=== PATIENT | female | born 1980 | race Caucasian/White ===

== ENCOUNTER 2017-11-20 15:33 | Emergency (ER) | payer OTHER, BC, SELFPAY ==
[2017-11-20 15:43] VITALS: BP 106/71; PULSE 88; RESP 16; TEMP 36.6; O2SAT 98; BMI 26.0
--- NOTE | 2017-11-20 15:48 | ED.UPPEXIN ---
HPI - Extremity Injury (Upper) <LUPILLO Church-BC - Last Filed: 11/20/17 18:17> General Chief Complaint: Extremity Injury, Upper Stated Complaint: RIGHT WRIST AND ARM PAIN FROM FALL Time Seen by Provider: 11/20/17 15:43 Source: patient Mode of arrival: ambulatory Limitations: no limitations History of Present Illness HPI narrative: Patient presents stating that she thinks she broke her right wrist again. She states she had a hamate fracture on the of last month, for which she was seen at [facility] and has already seen Orthopedics. She presents to the emergency department in an ulnar gutter splint. She has taken 100 mg of ibuprofen. She complains of pain in her right wrist as well as numbness and tingling in her fingers. She states ?this is exactly how it felt when I broke it before. States she did not land on an outstretched hand. States she landed with her right wrist flat on the ground. Denies any other injuries or pain from her fall. Related Data Allergies Allergy/AdvReac Type Severity Reaction Status Date / Time aspirin Allergy Severe Anaphylaxis Verified 11/20/17 15:46 amitriptyline Allergy Verified 11/20/17 15:46 cyclobenzaprine Allergy Verified 11/20/17 15:46 [From Flexeril] hydrocodone [From Vicodin] Allergy Verified 11/20/17 15:46 ketorolac [From Toradol] Allergy Verified 11/20/17 15:46 latex Allergy Verified 11/20/17 15:46 Sulfa (Sulfonamide Allergy Verified 11/20/17 15:46 Antibiotics) tramadol Allergy Verified 11/20/17 15:46 trazodone Allergy Verified 11/20/17 15:46 Review of Systems <LUPILLO Church-BC - Last Filed: 11/20/17 18:17> Review of Systems GENERAL: Denies chills, fatigue, malaise, fever, sweats. HEENT: Denies sinus pain, ear pain, sore throat, difficulty swallowing, dizziness. RESPIRATORY: Denies dyspnea, cough, wheezing, hemoptysis, sputum. CARDIOVASCULAR: Denies chest pain, palpitations, orthopnea, edema, GASTROINTESTINAL: Denies nausea, vomiting, abdominal pain, diarrhea, constipation, melena. : Denies dysuria, frequency, incontinence, hematuria, urinary retention. MUSCULOSKELETAL: See HPI SKIN: Denies rash, skin lesions, or other NEUROLOGIC: Denies weakness, headache, numbness, change in speech, confusion, seizures, incoordination. PSYCHIATRIC: No concerning psychosocial issues. 12 point review of systems is negative except for those stated above Exam <Emily RAJIV NunnP-BC - Last Filed: 11/20/17 18:17> Narrative Exam Narrative: GENERAL: This is a well-nourished, well-developed patient, appears anxious with friend at bedside. HEAD: Atraumatic. Normocephalic. No temporal or scalp tenderness. EYES: Pupils equal round and reactive. Extraocular motions intact. No scleral icterus. No injection or drainage. ENT: Nose without bleeding, purulent drainage or septal hematoma. Uvula midline. Airway patent. NECK: Trachea midline. No JVD or lymphadenopathy. Supple, nontender, no meningeal signs. CARDIOVASCULAR: Regular rate and rhythm without murmurs, gallops, or rubs. RESPIRATORY: Clear to auscultation. Breath sounds equal bilaterally. No wheezes, rales, or rhonchi. GASTROINTESTINAL: Abdomen soft, non-tender, nondistended. No hepato-splenomegaly, or palpable masses. No guarding. EXTREMITIES: Right wrist immobilized in ulnar gutter splint. Pain to palpation right wrist. Unable to perform range of motion due to splinting and previous fracture. Capillary refill less than 2 sec all fingers of right hand. BACK: Nontender without deformity or crepitance. No flank tenderness. NEURO: AOx3. SKIN: No rash or erythema. No noted erythema or ecchymosis of right hand. Skin is intact at right hand. Initial Vital Signs Initial Vital Signs: Vital Signs Temperature 97.8 F 11/20/17 15:43 Pulse Rate 88 11/20/17 15:43 Respiratory Rate 16 11/20/17 15:43 Blood Pressure 106/71 11/20/17 15:43 Pulse Oximetry 98 11/20/17 15:43 <Enzo Nolasco DO - Last Filed: 11/21/17 07:11> Initial Vital Signs Initial Vital Signs: Vital Signs Temperature 97.8 F 11/20/17 15:43 Pulse Rate 88 11/20/17 15:43 Respiratory Rate 16 11/20/17 15:43 Blood Pressure 106/71 11/20/17 15:43 Pulse Oximetry 98 11/20/17 15:43 Procedures <BETO Church - Last Filed: 11/20/17 18:17> Orthopedic Splinting/Casting Injury #1: Side: right Upper Extremity Injury Location: wrist Upper Extremity Immobilizer: ulnar gutter Additional Comments: pulse motor and sensory intact before and after splint application Course <BETO Church - Last Filed: 11/20/17 18:17> Orders Ordered: Discontinued Medications Acetaminophen (Tylenol) 975 mg PO NOW ONE Stop: 11/20/17 16:34 Last Admin: 11/20/17 16:52 Dose: 975 mg Ondansetron HCl (Zofran Odt) 4 mg PO NOW ONE Stop: 11/20/17 16:37 Last Admin: 11/20/17 16:52 Dose: 4 mg Reevaluation(s) Reevaluation #1: Patient given ice pack. Ice water given the patient's friend's son. Time: 16:00 Reevaluation #2: Splint applied. Patient tolerated well. Time: 16:30 Vital Signs - 8 hr 11/20/17 15:43 11/20/17 17:06 Temperature 97.8 F Pulse Rate 88 66 Respiratory Rate 16 16 Blood Pressure 106/71 Blood Pressure [Left Arm] 114/80 Pulse Oximetry 98 97 <Enzo Nolasco DO - Last Filed: 11/21/17 07:11> Orders Ordered: Discontinued Medications Acetaminophen (Tylenol) 975 mg PO NOW ONE Stop: 11/20/17 16:34 Last Admin: 11/20/17 16:52 Dose: 975 mg Ondansetron HCl (Zofran Odt) 4 mg PO NOW ONE Stop: 11/20/17 16:37 Last Admin: 11/20/17 16:52 Dose: 4 mg Vital Signs - 8 hr 11/20/17 15:43 11/20/17 17:06 Temperature 97.8 F Pulse Rate 88 66 Respiratory Rate 16 16 Blood Pressure 106/71 Blood Pressure [Left Arm] 114/80 Pulse Oximetry 98 97 MDM - Extremity Injury (Upper) <BETO Church - Last Filed: 11/20/17 18:17> Imaging Data right wrist xray : Radiologist's impression: [address] [address] XRay Report Signed Patient: Laila Fuller MR#: [id number] : 1980 Acct:[id number] Age/Sex: 37 / F Date of Service: 11/20/17 Loc: ED Accession Number: [id number] Procedure: XR wrist RT 2V Ordering Provider: Emily Nunn PROCEDURE: XR WRIST RT 2V INDICATIONS: recent wrist fracture; GLF and feels like she broke it again TECHNIQUE: 2 views of the wrist were acquired. COMPARISON: [facility], CR, XR HAND 3+ VIEWS RIGHT, 11/01/2017, 11:34. [facility], CR, XR WRIST 3+ VIEWS RIGHT, 10/29/2017, 9:21. [facility], CR, XR HAND 3+ VIEWS RIGHT, 10/30/2017, 10:49. [facility], CR, XR HAND 3+ VIEWS RIGHT, 11/17/2017, 13:19. FINDINGS: Bones: There is a nondisplaced fractures involving the ulnar aspect of the distal hamate and the base of the fifth metacarpal. No suspicious bony lesions. Soft tissues: No suspicious soft tissue calcifications. IMPRESSION: Healing fractures of hamate and the fifth metacarpal base. Dictated by: Nilsa Young M.D. on 11/20/2017 at 16:22 Approved by: Nilsa Young M.D. on 11/20/2017 at 16:29 [facility] Narrative Medical decision making narrative: Patient presented with concern over refracturing her wrist. X-ray illustrated a ?healing fracture of the hamate and 5th metacarpal base. Given that she broke her splint during her fall, she was placed in an ulnar gutter splint. Pulse motor and sensory were intact before and after splint application. Patient stated pain relief from splinting. She was also given Tylenol in the emergency department. I agree referred her to [facility] for specialist follow-up. She had no questions or concerns upon discharge. She did decline a sling. Discharge Plan Departure Patient Disposition: Home, Self-Care Clinical Impression: Fracture of wrist Discharge Date/Time: 11/20/17 17:18 Interventions: ED Discharge Assessment Last Done: 11/20/17 17:17 Instructions: DI for Wrist Fracture, How To Perform RICE (Rest, Ice, Compress, Elevate), How to Take Care of Your Splint, Acetaminophen, Ibuprofen Activity Restrictions/Additional Instructions: X-ray showed a fracture in your wrist. The radiologist states it appears as if it is healing. However given her previous injury and the breaking her splint, we resplinted you today. I would like you to follow up the primary care provider as well as [facility]. I have placed another referral for [facility]. I have given you information on rest, ice, compression and elevation. I also gave you information on Tylenol and ibuprofen. Monitor for circulation in the fingers in her splint. Be evaluated if you are concerned that the splint is too tight or losing circulation. Referrals: [facility] [Provider Group] <Enzo Nolasco DO - Last Filed: 11/21/17 07:11> Cosign ED Attending Marcos Attestation: I was available for consultation during this patient's emergency department encounter
--- NOTE | 2017-11-20 15:55 | DI.RAD.S_ITS ---
PROCEDURE: XR WRIST RT 2V INDICATIONS: recent wrist fracture; GLF and feels like she broke it again TECHNIQUE: 2 views of the wrist were acquired. COMPARISON: [facility], CR, XR HAND 3+ VIEWS RIGHT, 11/01/2017, 11:34. [facility], CR, XR WRIST 3+ VIEWS RIGHT, 10/29/2017, 9:21. [facility], CR, XR HAND 3+ VIEWS RIGHT, 10/30/2017, 10:49. [facility], CR, XR HAND 3+ VIEWS RIGHT, 11/17/2017, 13:19. FINDINGS: Bones: There is a nondisplaced fractures involving the ulnar aspect of the distal hamate and the base of the fifth metacarpal. No suspicious bony lesions. Soft tissues: No suspicious soft tissue calcifications. IMPRESSION: Healing fractures of hamate and the fifth metacarpal base. Dictated by: Nilsa Young M.D. on 11/20/2017 at 16:22 Approved by: Nilsa Young M.D. on 11/20/2017 at 16:29
--- NOTE | 2017-11-20 16:01 | ED_ITS ---
HPI - Extremity Injury (Upper) <LUPILLO Church-BC - Last Filed: 11/20/17 18:17> General Chief Complaint: Extremity Injury, Upper Stated Complaint: RIGHT WRIST AND ARM PAIN FROM FALL Time Seen by Provider: 11/20/17 15:43 Source: patient Mode of arrival: ambulatory Limitations: no limitations History of Present Illness HPI narrative: Patient presents stating that she thinks she broke her right wrist again. She states she had a hamate fracture on the of last month, for which she was seen at [facility] and has already seen Orthopedics. She presents to the emergency department in an ulnar gutter splint. She has taken 100 mg of ibuprofen. She complains of pain in her right wrist as well as numbness and tingling in her fingers. She states ?this is exactly how it felt when I broke it before. States she did not land on an outstretched hand. States she landed with her right wrist flat on the ground. Denies any other injuries or pain from her fall. Related Data Allergies Allergy/AdvReac Type Severity Reaction Status Date / Time aspirin Allergy Severe Anaphylaxis Verified 11/20/17 15:46 amitriptyline Allergy Verified 11/20/17 15:46 cyclobenzaprine Allergy Verified 11/20/17 15:46 [From Flexeril] hydrocodone [From Vicodin] Allergy Verified 11/20/17 15:46 ketorolac [From Toradol] Allergy Verified 11/20/17 15:46 latex Allergy Verified 11/20/17 15:46 Sulfa (Sulfonamide Allergy Verified 11/20/17 15:46 Antibiotics) tramadol Allergy Verified 11/20/17 15:46 trazodone Allergy Verified 11/20/17 15:46 Review of Systems <LUPILLO Church-BC - Last Filed: 11/20/17 18:17> Review of Systems GENERAL: Denies chills, fatigue, malaise, fever, sweats. HEENT: Denies sinus pain, ear pain, sore throat, difficulty swallowing, dizziness. RESPIRATORY: Denies dyspnea, cough, wheezing, hemoptysis, sputum. CARDIOVASCULAR: Denies chest pain, palpitations, orthopnea, edema, GASTROINTESTINAL: Denies nausea, vomiting, abdominal pain, diarrhea, constipation, melena. : Denies dysuria, frequency, incontinence, hematuria, urinary retention. MUSCULOSKELETAL: See HPI SKIN: Denies rash, skin lesions, or other NEUROLOGIC: Denies weakness, headache, numbness, change in speech, confusion, seizures, incoordination. PSYCHIATRIC: No concerning psychosocial issues. 12 point review of systems is negative except for those stated above Exam <Emily RAJIV NunnP-BC - Last Filed: 11/20/17 18:17> Narrative Exam Narrative: GENERAL: This is a well-nourished, well-developed patient, appears anxious with friend at bedside. HEAD: Atraumatic. Normocephalic. No temporal or scalp tenderness. EYES: Pupils equal round and reactive. Extraocular motions intact. No scleral icterus. No injection or drainage. ENT: Nose without bleeding, purulent drainage or septal hematoma. Uvula midline. Airway patent. NECK: Trachea midline. No JVD or lymphadenopathy. Supple, nontender, no meningeal signs. CARDIOVASCULAR: Regular rate and rhythm without murmurs, gallops, or rubs. RESPIRATORY: Clear to auscultation. Breath sounds equal bilaterally. No wheezes , rales, or rhonchi. GASTROINTESTINAL: Abdomen soft, non-tender, nondistended. No hepato-splenomegaly , or palpable masses. No guarding. EXTREMITIES: Right wrist immobilized in ulnar gutter splint. Pain to palpation right wrist. Unable to perform range of motion due to splinting and previous fracture. Capillary refill less than 2 sec all fingers of right hand. BACK: Nontender without deformity or crepitance. No flank tenderness. NEURO: AOx3. SKIN: No rash or erythema. No noted erythema or ecchymosis of right hand. Skin is intact at right hand. Initial Vital Signs Initial Vital Signs: Vital Signs Temperature 97.8 F 11/20/17 15:43 Pulse Rate 88 11/20/17 15:43 Respiratory Rate 16 11/20/17 15:43 Blood Pressure 106/71 11/20/17 15:43 Pulse Oximetry 98 11/20/17 15:43 <Enzo Nolasco DO - Last Filed: 11/21/17 07:11> Initial Vital Signs Initial Vital Signs: Vital Signs Temperature 97.8 F 11/20/17 15:43 Pulse Rate 88 11/20/17 15:43 Respiratory Rate 16 11/20/17 15:43 Blood Pressure 106/71 11/20/17 15:43 Pulse Oximetry 98 11/20/17 15:43 Procedures <BETO Church - Last Filed: 11/20/17 18:17> Orthopedic Splinting/Casting Injury #1: Side: right Upper Extremity Injury Location: wrist Upper Extremity Immobilizer: ulnar gutter Additional Comments: pulse motor and sensory intact before and after splint application Course <BETO Church - Last Filed: 11/20/17 18:17> Orders Ordered: Discontinued Medications Acetaminophen (Tylenol) 975 mg PO NOW ONE Stop: 11/20/17 16:34 Last Admin: 11/20/17 16:52 Dose: 975 mg Ondansetron HCl (Zofran Odt) 4 mg PO NOW ONE Stop: 11/20/17 16:37 Last Admin: 11/20/17 16:52 Dose: 4 mg Reevaluation(s) Reevaluation #1: Patient given ice pack. Ice water given the patient's friend' s son. Time: 16:00 Reevaluation #2: Splint applied. Patient tolerated well. Time: 16:30 Vital Signs - 8 hr 11/20/17 15:43 11/20/17 17:06 Temperature 97.8 F Pulse Rate 88 66 Respiratory Rate 16 16 Blood Pressure 106/71 Blood Pressure [Left Arm] 114/80 Pulse Oximetry 98 97 <Enzo Nolasco DO - Last Filed: 11/21/17 07:11> Orders Ordered: Discontinued Medications Acetaminophen (Tylenol) 975 mg PO NOW ONE Stop: 11/20/17 16:34 Last Admin: 11/20/17 16:52 Dose: 975 mg Ondansetron HCl (Zofran Odt) 4 mg PO NOW ONE Stop: 11/20/17 16:37 Last Admin: 11/20/17 16:52 Dose: 4 mg Vital Signs - 8 hr 11/20/17 15:43 11/20/17 17:06 Temperature 97.8 F Pulse Rate 88 66 Respiratory Rate 16 16 Blood Pressure 106/71 Blood Pressure [Left Arm] 114/80 Pulse Oximetry 98 97 MDM - Extremity Injury (Upper) <BETO Church - Last Filed: 11/20/17 18:17> Imaging Data right wrist xray : Radiologist's impression: [address] [address] XRay Report Signed Patient: Laila Fuller MR#: [id number] : 1980 Acct:[id number] Age/Sex: 37 / F Date of Service: 11/20/17 Loc: ED Accession Number: [id number] Procedure: XR wrist RT 2V Ordering Provider: Emily Nunn PROCEDURE: XR WRIST RT 2V INDICATIONS: recent wrist fracture; GLF and feels like she broke it again TECHNIQUE: 2 views of the wrist were acquired. COMPARISON: [facility], CR, XR HAND 3 + VIEWS RIGHT, 11/01/2017, 11:34. [facility], CR, XR WRIST 3+ VIEWS RIGHT, , 9:21. [facility], CR, XR HAND 3+ VIEWS RIGHT, 10/30/2017, 10:49. [facility], CR, XR HAND 3+ VIEWS RIGHT, 2017, 13:19. FINDINGS: Bones: There is a nondisplaced fractures involving the ulnar aspect of the distal hamate and the base of the fifth metacarpal. No suspicious bony lesions. Soft tissues: No suspicious soft tissue calcifications. IMPRESSION: Healing fractures of hamate and the fifth metacarpal base. Dictated by: Nilsa Young M.D. on 11/20/2017 at 16:22 Approved by: Nilsa Young M.D. on 11/20/2017 at 16:29 [facility] Narrative Medical decision making narrative: Patient presented with concern over refracturing her wrist. X-ray illustrated a ?healing fracture of the hamate and 5th metacarpal base. Given that she broke her splint during her fall, she was placed in an ulnar gutter splint. Pulse motor and sensory were intact before and after splint application. Patient stated pain relief from splinting. She was also given Tylenol in the emergency department. I agree referred her to [facility] for specialist follow-up. She had no questions or concerns upon discharge. She did decline a sling. Discharge Plan Departure Patient Disposition: Home, Self-Care Clinical Impression: Fracture of wrist Discharge Date/Time: 11/20/17 17:18 Interventions: ED Discharge Assessment Last Done: 11/20/17 17:17 Instructions: DI for Wrist Fracture, How To Perform RICE (Rest, Ice, Compress, Elevate), How to Take Care of Your Splint, Acetaminophen, Ibuprofen Activity Restrictions/Additional Instructions: X-ray showed a fracture in your wrist. The radiologist states it appears as if it is healing. However given her previous injury and the breaking her splint, we resplinted you today. I would like you to follow up the primary care provider as well as [facility]. I have placed another referral for [facility]. I have given you information on rest , ice, compression and elevation. I also gave you information on Tylenol and ibuprofen. Monitor for circulation in the fingers in her splint. Be evaluated if you are concerned that the splint is too tight or losing circulation. Referrals: [facility] [Provider Group] <Enzo Nolasco DO - Last Filed: 11/21/17 07:11> Cosign ED Attending Marcos Attestation: I was available for consultation during this patient's emergency department encounter
[2017-11-20] MEDS: ACETAMINOPHEN 325 MG TABLET 975 MG PO (16:52)
[2017-11-20] MEDS: ONDANSETRON 4 MG ODT PO (16:52)
[2017-11-20 17:06] VITALS: BP 114/80; PULSE 66; RESP 16; O2SAT 97
== END 2017-11-20 17:18 | disposition home or self-care (01) ==
PROVIDERS: Emergency Provider Nurse Practitioner Family
DX: S62.101A Fracture of unspecified carpal bone, right wrist, initial encounter for closed fracture (principal); W19.XXXA Unspecified fall, initial encounter
CPT/HCPCS: 29125; 73100; 99283